=== PATIENT | male | born 1990 | race Hispanic/Latino ===

== ENCOUNTER 2021-04-29 14:55 | Emergency (ER) | payer BC ==
[~2021-04-29] VITALS: Ht 170.2 cm; Wt 158.8 kg
[2021-04-29] MEDS ORDERED: SODIUM CHLORIDE 0.9% 50ML 50 ML ONE (15:33)
[2021-04-29] MEDS ORDERED: IOPAMIDOL 370 MG/ML 200 ML INFUS..BTL INJ ONE (15:33)
[2021-04-29 16:58] VITALS: BP 133/74
== END 2021-04-29 17:08 | disposition home or self-care (01) ==
LOC: FSED 14:59
DX: K62.5 Hemorrhage of anus and rectum (principal); R10.31 Right lower quadrant pain; K76.0 Fatty (change of) liver, not elsewhere classified
CPT/HCPCS: 74177; 80053; 81003; 85025; 99283; Q9967